=== PATIENT | male | born 1975 ===

== ENCOUNTER 2018-01-14 10:31 | Inpatient (IN) | payer OTHER ==
[~2018-01-14] VITALS: Ht 180.3 cm; Wt 81.6 kg
[2018-01-14] MEDS ORDERED: COZAAR50 MG PO (10:39)
[2018-01-14] MEDS ORDERED: ULTRAM50 MG PO (10:43)
[2018-01-28] MEDS ORDERED: PERCOCET 5-3251 EACH PO (11:24)
== END 2018-01-28 12:41 | disposition home or self-care (01) | DRG 580 ==
LOC: SURG 01-22 09:50 → O/R 01-22 09:50 → SURH 01-22 10:30 → SURG 01-22 20:17
PROVIDERS: Surgery
PROC: 0DBW0ZX Excision of Peritoneum, Open Approach, Diagnostic (ICD-10-PCS; 2018-01-22)
PROC: 0DJD8ZZ Inspection of Lower Intestinal Tract, Via Natural or Artificial Opening Endoscopic (ICD-10-PCS; 2018-01-22)
PROC: 0WJG4ZZ Inspection of Peritoneal Cavity, Percutaneous Endoscopic Approach (ICD-10-PCS; principal; 2018-01-22 12:00)
DX: L72.0 Epidermal cyst (principal); K56.0 Paralytic ileus; K91.89 Other postprocedural complications and disorders of digestive system; I11.9 Hypertensive heart disease without heart failure; D64.89 Other specified anemias; D12.8 Benign neoplasm of rectum

== ENCOUNTER 2018-01-21 06:04 | Day surgery (SDC) | payer OTHER ==
[~2018-01-21 06:04] MED LIST: COZAAR50 MG PO; ULTRAM50 MG PO
== END 2018-01-21 09:45 | disposition home or self-care (01) ==
LOC: AMB-ENDOS 06:04
DX: D12.2 Benign neoplasm of ascending colon (principal); D12.5 Benign neoplasm of sigmoid colon; D12.8 Benign neoplasm of rectum